=== PATIENT | male | born 1980 | race Caucasian/White ===

== ENCOUNTER 2018-01-27 18:31 | Emergency (ER) | payer OTHER ==
[~2018-01-27] VITALS: Ht 185.4 cm; Wt 88.7 kg
[2018-01-27 18:34] VITALS: TEMP 36.5; Ht 185.4 cm; Wt 88.7 kg
[2018-01-27] MEDS ORDERED: CLINDAMYCIN HCL 150 MG CAP PO STA (19:06)
[2018-01-27] MEDS ORDERED: TRAM-453 PO (19:10)
[2018-01-27] MEDS ORDERED: CLIN300C2 PO (19:10)
--- NOTE | 2018-01-27 19:13 | EMERGENCY ROOM VISIT NOTE ---
ED Visit Note First contact with patient: 18:51 CHIEF COMPLAINT: Toothache HISTORY OF PRESENT ILLNESS: This 37-year-old male patient presented to the emergency department, ambulatory, with a progressive toothache for past 4 days. The patient believes it is coming from the right lower wisdom tooth, which he believes he fractured while eating hard candy 4 days ago. The pain is now steady and severe and radiates to the upper posterior molar and face. The patient does not have a dentist appointment set up, as he states he has new insurance and is having difficulty finding a dentist to accept the insurance. They rate their pain a 9/10 and the ibuprofen and Tylenol they have been taking has not relieved the pain. Denies facial swelling or fever. The patient denies any discharge from the mouth. He was seen 3 days ago by urgent care and prescribed Augmentin to be taken for possible infection. He states the pain is worsening. REVIEW OF SYSTEMS: A 6 system review of systems was completed with positives and pertinent negatives listed in the HPI. ALLERGIES: None MEDICATIONS: Augmentin PMH: None SOCIAL HISTORY: The patient lives locally with family. He denies drug, alcohol use. He admits to smoking 1 pack of cigarettes per day. PHYSICAL EXAM: Vitals are noted on the nurse's note and reviewed by myself. Vital signs stable. Temperature 36.5C orally. GENERAL: This is a 37-year-old white male, in no acute distress, nondiaphoretic, well-developed well- nourished. Mouth: The #32 tooth is fractured and very carious and the gum is swollen and tender around it, without any discharge or signs of an abscess. The remainder of the pharynx and tonsils are without erythema, edema, or exudate. The airway is patent. There is no facial swelling, cervical or submandibular lymphadenopathy. The patient appears uncomfortable and in pain. The patient has overall poor dental hygiene. EARS: External auditory canals clear, tympanic membranes pearly andrew without erythema or effusion bilaterally. ED COURSE: The patient was seen and evaluated as above. He will be switched from Augmentin to clindamycin, and provided with a short course of tramadol for pain. He was given his first dose of antibiotics here in the emergency department as well as home packs for the tramadol and clindamycin. Prescriptions were sent to the pharmacy. The patient was encouraged to follow- up outpatient with a dentist, and a did discuss with him the limitations of the emergency department in regards to dental complaints. The patient verbalizes understanding. Discharge instructions reviewed, and the patient was discharged home in good condition. I attest that I have personally reviewed the patient's current medication list. Blood Pressure Screening: Patient was found to have a slightly elevated blood pressure due to circumstances. I do not believe that the patient requires hypertension monitoring. Differential diagnosis includes odontalgia, periapical abscess, fracture, Bridger 's angina, cellulitis, malignancy, and others DIAGNOSIS: Odontalgia Problem List Medical Problems: (1) TOBACCO USE DISORDER Status: Chronic Current/Historical Medications Scheduled Amoxicillin & Pot Clavulanate (Augmentin 875-125 mg), 1 TAB PO BID Clindamycin Hcl (Cleocin), 300 MG PO QID Tramadol Hcl (Ultram), 50 MG PO Q4H Scheduled PRN Acetaminophen (Tylenol), 1,000 MG PO Q6H PRN for Pain or Fever Fhrieyy-Qeymljstaleur-Iouwstsq (Excedrin Migraine), 1 TAB PO UD PRN for Pain Ibuprofen Tab (Advil), 800 MG PO Q8 PRN for Pain or Fever Allergies Coded Allergies: No Known Allergies (Unverified , 11/05/14) Vital Signs Date Time Temp Pulse Resp B/P (MAP) Pulse Ox O2 Delivery O2 Flow Rate FiO2 01/27/18 18:34 36.5 69 16 186/119 100 Room Air Medications Administered Medications (Trade) Dose Ordered Sig/Matt Route Start Time Stop Time Status Last Admin Dose Admin Clindamycin HCl (Cleocin 150MG Home Pack) 1 homepack UD ONCE PO 01/27/18 19:15 01/27/18 19:16 DC 01/27/18 19:14 1 HOMEPACK Tramadol HCl (Ultram Home Pack) 1 homepack UD ONCE PO 01/27/18 19:15 01/27/18 19:16 DC 01/27/18 19:14 1 HOMEPACK Clindamycin HCl (Cleocin Cap) 300 mg ONE STAT PO 01/27/18 19:06 01/27/18 19:08 DC 01/27/18 19:17 300 MG Departure Information Impression Primary Impression: Odontalgia Dispostion Home / Self-Care Condition GOOD Prescriptions Tramadol Hcl (ULTRAM) 50 Mg Tab 50 MG PO Q4H, #8 TAB PRN PAIN Prov: Melanie Aguilar PA-C 01/27/18 Clindamycin Hcl (CLEOCIN) 300 Mg Cap 300 MG PO QID for 7 Days, #28 CAP Prov: Melanie Aguilar PA-C 01/27/18 Referrals No Doctor, Assigned (PCP) Patient Instructions ED Abscess Dental, [facility] Additional Instructions You have been treated in the Emergency Department for Dental Pain. You have been prescribed tramadol to be used for pain control. This is a narcotic medication. You cannot drive or consume alcohol while on this medicine. This medicine should only be used for pain that cannot be controlled with mwng-hlp-ouowiis pain medicines. You were prescribed clindamycin to be taken 300 mg [address] of the Augmentin you were previously prescribed. This is an antibiotic. All antibiotics have the potential to cause diarrhea. Stop this medication and contact a medical provider if you were to develop any significant adverse side effects including: wheezing, shortness of breath, passing out, vomiting, or a diffuse rash. Always take antibiotics as directed and COMPLETE the ENTIRE course regardless of the improvement of your symptoms. For pain control, you can use the following qegy-fyj-wxjhsil medicines (if >12 yo): Ibuprofen(Motrin, Advil) may be used for fever or pain. Use 600mg every six hours as needed. Take with food. Avoid using more than 2400mg in a 24 hour period. Do not use 2400mg per day for more than three consecutive days without physician direction. Prolonged inappropriate use can lead to stomach upset or ulcers. (AND/OR) Acetaminophen(Tylenol) may be used for fever or pain. Use 1000mg every six hours as needed. Avoid using more than 3000mg in a 24 hour period. Refrain from smoking cigarettes or using chewing tobacco until you have been evaluated by your dentist. Keeping beverages lukewarm and consuming soft foods can decrease your pain. Warm compresses over the affected area may offer some relief. You MUST seek evaluation of your dental pain by a dentist following your visit to the Emergency Department. The Emergency Department is not capable of treating dental issues long-term. You should call your dentist as soon as possible to make an appointment for evaluation of your dental pain. Return to the emergency department if you develop the following symptoms despite treatment course outlined above: fever, intractable pain, increased redness, swelling, or purulent discharge.
[2018-01-27] MEDS ORDERED: CLINDAMYCIN 150MG HOME PACK PO ONE (19:15)
[2018-01-27] MEDS ORDERED: TRAMADOL HCL 50 MG HOME PACK PO ONE (19:15)
[2018-01-27] MEDS ORDERED: ACET-1256 PO (19:19)
[2018-01-27] MEDS ORDERED: AMOX875T PO (19:19)
[2018-01-27] MEDS ORDERED: ASPI-390 PO (19:19)
[2018-01-27] MEDS ORDERED: IBUP-103 PO (19:19)
[2018-01-27 19:21] VITALS: BP 190/98; PULSE 88; O2SAT 99
== END 2018-01-27 19:22 | disposition home or self-care (01) ==
LOC: C.EDB 18:32 → C.EDD 19:22
DX: K08.89 Other specified disorders of teeth and supporting structures (principal); S02.5XXA Fracture of tooth (traumatic), initial encounter for closed fracture; X58.XXXA Exposure to other specified factors, initial encounter; F17.210 Nicotine dependence, cigarettes, uncomplicated